=== PATIENT | male | born 1985 | race Caucasian/White ===

== ENCOUNTER 2019-08-06 08:27 | Outpatient (RCR) | payer OTHER, SELFPAY | END 2019-08-17 00:01 | LOC: WOUND 08:27 | PROVIDERS: Visit Provider Surgery | DX: T81.89XA Other complications of procedures, not elsewhere classified, initial encounter (principal); Y83.8 Other surgical procedures as the cause of abnormal reaction of the patient, or of later complication, without mention of misadventure at the time of the procedure | CPT/HCPCS: 11042 ×3 ==

== ENCOUNTER 2019-08-27 14:11 | Outpatient (RCR) | payer OTHER, SELFPAY | END 2019-09-17 23:59 | disposition home or self-care (01) | LOC: WOUND 14:11 | PROVIDERS: Visit Provider Surgery | DX: T81.89XA Other complications of procedures, not elsewhere classified, initial encounter (principal); Y83.8 Other surgical procedures as the cause of abnormal reaction of the patient, or of later complication, without mention of misadventure at the time of the procedure | CPT/HCPCS: 11042; 99212 ==

== ENCOUNTER 2020-05-16 12:44 | Outpatient (CLI) | payer OTHER, SELFPAY ==
--- NOTE | 2020-05-16 12:45 | XR_ITS ---
WS: [id number] PROCEDURE: XR chest 2V* [id number] CLINICAL INFORMATION: REGULATED PROGRAM MONITORING COMPARISON: None. FINDINGS: Heart: Normal cardiac silhouette. Lungs: Mild chronic emphysematous changes. No acute pulmonary infiltrates. No focal pneumonia or pleu ral fluid. Bones: Mild thoracic curve convex right. Moderate thoracic kyphosis with chronic anterior wedging in the mid and lower thoracic spine. XR/XR chest 2V* [id number] IMPRESSION: 1. Moderate chronic emphysematous changes. No acute pulmonary infiltrates. 2. Mild thoracic curve convex right. Moderate thoracic kyphosis with chronic a nterior wedging in the mid and lower thoracic spine.
== END 2020-05-16 12:45 | disposition home or self-care (01) ==
LOC: RADWPI 12:44
PROVIDERS: Visit Provider Preventive Medicine Occupational Medicine
DX: Z51.81 Encounter for therapeutic drug level monitoring (principal); J43.9 Emphysema, unspecified
CPT/HCPCS: 71046

== ENCOUNTER → 2021-01-18 23:59 | Outpatient (BNVA) | payer OTHER, SELFPAY | PROVIDERS: Supervising Provider Family Medicine Adult Medicine; Visit Provider Nurse Practitioner Family | DX: R03.0 Elevated blood-pressure reading, without diagnosis of hypertension (principal); R42 Dizziness and giddiness; B37.0 Candidal stomatitis | CPT/HCPCS: 80053; 80061; 83036; 84443; 85025 ==

== ENCOUNTER → 2021-08-31 00:01 | Outpatient (BNVA) | payer OTHER, SELFPAY | PROVIDERS: PCP Family Medicine Adult Medicine; Visit Provider Family Medicine Adult Medicine | DX: E78.5 Hyperlipidemia, unspecified (principal); R63.5 Abnormal weight gain; R03.0 Elevated blood-pressure reading, without diagnosis of hypertension; J45.909 Unspecified asthma, uncomplicated | CPT/HCPCS: 80053; 80061; 83036 ==

== ENCOUNTER → 2021-12-07 09:55 | Outpatient (BNVA) | payer OTHER, SELFPAY | PROVIDERS: PCP Family Medicine Adult Medicine; Visit Provider Family Medicine Adult Medicine | DX: E78.5 Hyperlipidemia, unspecified (principal); E66.9 Obesity, unspecified; R03.0 Elevated blood-pressure reading, without diagnosis of hypertension | CPT/HCPCS: 80061 ==

== ENCOUNTER 2022-01-14 15:36 | Emergency (ER) | payer OTHER, SELFPAY ==
[2022-01-14 15:41] VITALS: BP 141/88; PULSE 110; RESP 20; TEMP 36.8; O2SAT 98
[2022-01-14] MEDS: sulfamethoxazole-trimeth DS 160-800 mg Tablet 2 TAB PO (17:20)
[2022-01-14] MEDS: cephALEXin 500 mg Capsule PO (17:20)
--- NOTE | 2022-01-14 17:27 | ED_ITS ---
HPI - Extremity Problem General: Chief complaint: Extremity Injury, Upper Stated complaint: Spot on Left hand that keeps getting worse Time Seen by Provider: 01/14/22 16:10 History of Present Illness: Patient comes in with redness, swelling, and pain of the left hand. States he had what looked like an ingrown hair that he removed, then the redness and swelling continue to get worse. Was seen at urgent care today but was concerned that they did not do anything for it. Associated symptoms: Deny chest pain or fever(s) Review of Systems Const: Denies: fever(s) or body aches Eyes: Denies: change in vision or blurry vision ENMT: Denies: throat pain or odynophagia Card: Denies: chest pain or palpitations Resp: Denies: dyspnea or productive cough GI: Denies: abdominal pain, nausea or vomiting : Denies: flank pain or dysuria Musc: Denies: neck pain or back pain Skin/Breast: Reports: other (Redness swelling of left hand); Denies: pruritus Neuro: Denies: headache(s) or numbness in extremities Psych: Denies: anxiety or change in appetite Endo: Denies: polyuria or excessive sweating PFSH ED PFSH: Medical History Asthma Blepharitis of eyelid of left eye Blood pressure elevated without history of HTN Dyslipidemia Obesity (BMI 30.0-34.9) Weight gain finding Family History Other Cancer Diabetes Hyperlipidemia Hypertension Social History Smoking and tobacco status: current every day smoker cigarettes Packs smoked per day: 0.5 Alcohol intake: current Alcohol intake frequency: few times a month Marital status: Legally Number of children: 2 Number of grandchildren: 0 Current occupational status: employed Current occupation: [employer] Physical Exam Const: COMMON NORMALS: no acute distress, patient oriented x3, healthy appearing and alert HENMT: COMMON NORMALS: normocephalic and atraumatic HEAD & SCALP: normocephalic and atraumatic Eye: COMMON NORMALS: Equal, round and reactive pupils present and EOMs intact bilaterally PUPIL: Yes Equal, round and reactive pupils present Neck/C-Spine: COMMON NORMALS: full ROM and supple Resp: COMMON NORMALS: normal respiratory effort, No retractions and No use of accessory muscles Cardio: COMMON NORMALS: regular rate and regular rhythm RATE: regular rate RHYTHM: regular rhythm GI: COMMON NORMALS: Normal to inspection, nondistended, normoactive bowel sounds present, Soft to palpation and non-tender PALPATION: Yes Soft to palpation Back/Pelvis: COMMON NORMALS: thoracic and lumbar spine normal to inspection and no thoracic nor lumbar tenderness Extremity: COMMON NORMALS: full ROM OTHER: erythema, swelling, hot to touch, tenderness palpation of his left hand with the erythema tracking up onto his left wrist. No palpable fluctuance. Bedside ultrasound does not show any drainable fluid collection. Neuro: COMMON NORMALS: patient oriented x3 SENSORIUM/ORIENTATION: Yes alert Psych: COMMON NORMALS: mental status grossly normal and cooperative Skin: COMMON NORMALS: no rashes or lesions noted and no wounds GENERAL SKIN EXAM: no rashes or lesions noted Course Vital Signs: Vital signs: Vital Signs Temperature 98.3 F 01/14/22 15:41 Pulse Rate 110 H 01/14/22 15:41 Respiratory Rate 20 H 01/14/22 15:41 Blood Pressure 141/88 01/14/22 15:41 Pulse Oximetry 98 01/14/22 15:41 MDM - Extremity (Nontraumatic) Medical Decision Making Patient comes in with redness, swelling, and pain of the left hand. States he had what looked like an ingrown hair that he removed, then the redness and swelling continue to get worse. Was seen at urgent care today but was concerned that they did not do anything for it. On physical exam he has erythema, swelling, hot to touch, tenderness palpation of his left hand with the erythema tracking up onto his left wrist. No palpable fluctuance. Bedside ultrasound does not show any drainable fluid collection. We will start him on antibiotics and discharged with precautions return for worsening or changing symptoms. Discharge Plan Discharge Patient Disposition: Home Clinical Impression: Cellulitis of hand Condition: Stable Prescriptions: New Bactrim DS 800-160 mg tablet 2 tab PO BID 10 Days Qty: 40 0RF cephalexin 500 mg capsule 500 mg PO Q6H 10 Days Qty: 40 0RF No Action niacin 1,000 mg tablet extended release 24 hr 1,000 mg PO DAILY Qty: 90 5RF albuterol sulfate 2.5 mg /3 mL (0.083 %) solution for nebulization 2.5 mg inhalation Q4H PRN (Reason: shortness of breath or wheezing) Qty: 75 0RF acetaminophen [Tylenol] 325 mg tablet 325 mg PO QID PRN0RF multivitamin Tablet 1 tab PO DAILY 0RF sulfamethoxazole-trimethoprim [Bactrim DS] 800-160 mg tablet 1 tab PO BID 7 Days Qty: 14 0RF mupirocin 2 % ointment 1 applic topical BID Qty: 22 0RF albuterol sulfate 90 mcg/actuation HFA aerosol inhaler See Rx Instructions .ROUTE .COMPLEX Qty: 8.5 1RF Dose Instruction: INHALE 2 PUFFS BY MOUTH EVERY 6 HOURS NEEDED FOR SHORTNESS OF BREATH OR WHEEZING Rx Instructions: INHALE 2 PUFFS BY MOUTH EVERY 6 HOURS NEEDED FOR SHORTNESS OF BREATH OR WHEEZING atorvastatin 80 mg tablet 80 mg PO DAILY Qty: 90 1RF Discharge Orders: Discharge ED (Routine); Ordered 01/14/22 Ordered By: Florencio Frazier Referrals: Reji Bojorquez MD [Primary Care Provider] - Patient Instructions: Cellulitis Coding Level of Care Code ED Pre Certification Specialist for Bradley Buchanan
[2022-01-14 17:54] VITALS: BP 129/85; PULSE 90; O2SAT 98
== END 2022-01-14 17:50 | disposition home or self-care (01) ==
PROVIDERS: Emergency Provider Emergency Medicine; PCP Family Medicine Adult Medicine
DX: L03.114 Cellulitis of left upper limb (principal)
CPT/HCPCS: 99283

== ENCOUNTER 2022-04-01 10:38 | Outpatient (CLI) | payer OTHER, SELFPAY ==
--- NOTE | 2022-04-01 10:43 | XR_ITS ---
WS: [id number] Exam: XR chest 2V* [id number] Date/Time of Exam: 04/01/2022 10:43 AM Reason For Exam: Shortness of breath Comparison 05/16/2020. The lungs are clear and fully expanded. Normal cardiomediastinal silhouette. No pleural effusions. In creased thoracic kyphosis with spondylosis noted. XR/XR chest 2V* [id number] IMPRESSION: 1. No acute cardiopulmonary finding. No change.
== END 2022-04-01 10:39 | disposition home or self-care (01) ==
LOC: RAD 10:40
PROVIDERS: PCP Family Medicine Adult Medicine; Visit Provider Family Medicine
DX: R06.00 Dyspnea, unspecified (principal)
CPT/HCPCS: 71046

== ENCOUNTER → 2022-06-26 10:30 | Outpatient (BNVA) | payer OTHER, SELFPAY | PROVIDERS: PCP Family Medicine Adult Medicine; Visit Provider Podiatrist Foot & Ankle Surgery | DX: S39.92XA Unspecified injury of lower back, initial encounter (principal); Q82.8 Other specified congenital malformations of skin; X58.XXXA Exposure to other specified factors, initial encounter | CPT/HCPCS: 73630 ==

== ENCOUNTER → 2022-08-13 08:13 | Outpatient (BNVA) | payer OTHER, SELFPAY | PROVIDERS: PCP Family Medicine Adult Medicine; Visit Provider Physician Assistant | DX: M54.50 Low back pain, unspecified (principal) | CPT/HCPCS: 72110 ==